=== PATIENT | female | born 1995 | race African-American/Black ===

== ENCOUNTER 2022-06-07 13:15 | Inpatient (IN) | payer OTHER ==
[2022-06-07 12:46] VITALS: BMI 28.1
[2022-06-07] MEDS ORDERED: NALOXONE HCL (KLOXXADO) 8 MG SPRAY NS PRN (15:27)
[2022-06-07] MEDS ORDERED: POLYETHYLENE GLYCOL (HEALTHYLAX) 3350 17 GM PACKET PO PRN (15:27)
[2022-06-07] MEDS ORDERED: ACETAMINOPHEN 325 MG TABLET (FP) PO PRN ×2 (15:27)
[2022-06-07] MEDS ORDERED: IBUPROFEN 400 MG TABLET (FP) PO PRN (15:27)
[2022-06-07] MEDS ORDERED: DICYCLOMINE HCL 10 MG CAPSULE PO PRN (15:27)
[2022-06-07] MEDS ORDERED: MAG HYDROX/AL HYDROX/SIMETH 30 ML UNIT-DOSE CUP PO PRN (15:27)
[2022-06-07] MEDS ORDERED: ONDANSETRON *ODT* 4 MG TABLET SL PRN (15:27)
[2022-06-07] MEDS ORDERED: MAGNESIUM HYDROX 2400MG/30ML ORAL SUSPENSION 30 ML CUP PO PRN (15:27)
[2022-06-07] MEDS ORDERED: BENZOCAINE/MENTHOL (CHLORASEPTIC ) LOZENGE MM PRN (15:27)
[2022-06-07] MEDS ORDERED: LOPERAMIDE HCL 2 MG CAPSULE PO PRN (15:27)
[2022-06-07] MEDS ORDERED: BISMUTH SUBSALICYLATE 524 MG/30 ML PO PRN (15:27)
[2022-06-07] MEDS ORDERED: ALBUTEROL SO4 HFA INHALER IH PRN (15:39)
[2022-06-07] MEDS: hydrOXYzine PAMOATE 25 MG CAPSULE (FP) PO PRN (18:32)
[2022-06-07] MEDS: THIAMINE HCL 100 MG TABLET (FP) PO SCH (22:42)
[2022-06-07] MEDS: MELATONIN 5 MG TABLETS PO SCH (22:42)
[2022-06-08] MEDS: PRENATAL VITAMINS W/ FOLIC ACID TABLET (FP) PO SCH (10:27)
[2022-06-08] MEDS: THIAMINE HCL 100 MG TABLET (FP) PO SCH ×2 (10:27→22:19)
[2022-06-08 11:42] LABS: HEMATOCRIT 40.9 % (32.4-45.2); HEMOGLOBIN 13.2 GM/dL (10.7-15.3); MCH 31.1 pg (25.7-33.7); MCHC 32.3 g/dl (32.0-36.0); MEAN CELL VOLUME 96.3 fl (80-96); MEAN PLT VOLUME 7.8 fl (7.5-11.1); PLATELET COUNT 212 10^3/uL (134-434); RBC 4.25 M/mm3 (3.60-5.2); RDW 14.7 % (11.6-15.6); WHITE BLOOD COUNT 4.8 K/mm3 (4.0-10.0)
[2022-06-08 12:00] LABS: CALCIUM 9.4 mg/dL (8.5-10.1)
[2022-06-08 12:01] LABS: ALBUMIN 3.8 g/dl (3.4-5.0); BLOOD UREA NITROGEN 9.4 mg/dL (7-18)
[2022-06-08 12:03] LABS: CREATININE 0.7 mg/dL (0.55-1.3)
[2022-06-08 12:05] LABS: BILIRUBIN,TOTAL 1.5 mg/dL (0.2-1); TOT PROT 6.9 g/dl (6.4-8.2)
[2022-06-08] MEDS: lamoTRIgine 25 MG TABLET PO SCH (12:27)
[2022-06-08 12:44] LABS: HIV INTERPRETATION NEGATIVE (NEGATIVE)
[2022-06-08] MEDS: hydrOXYzine PAMOATE 25 MG CAPSULE (FP) PO PRN ×2 (13:10→22:19)
[2022-06-08] MEDS: diazePAM 5 MG TABLET PO PRN ×2 (19:24→23:41)
[2022-06-08] MEDS: MELATONIN 5 MG TABLETS PO SCH (22:19)
[2022-06-09] MEDS ORDERED: cloNIDine HCL 0.1 MG TABLET PO PRN
[2022-06-09 09:49] VITALS: BP 133/96; PULSE 74; RESP 16; TEMP 98.2
[2022-06-09] MEDS: lamoTRIgine 25 MG TABLET PO SCH (10:09)
[2022-06-09] MEDS: PRENATAL VITAMINS W/ FOLIC ACID TABLET (FP) PO SCH (10:09)
[2022-06-09] MEDS: THIAMINE HCL 100 MG TABLET (FP) PO SCH (10:09)
== END 2022-06-09 11:55 | disposition home or self-care (01) | DRG 775 ==
LOC: YASAS 13:15 → Y6N 17:42
PROVIDERS: ADMIT Allergy & Immunology; ATTEND Surgery
PROC: HZ2ZZZZ Detoxification Services for Substance Abuse Treatment (ICD-10-PCS; principal; 2022-06-07)
DX: F10.230 Alcohol dependence with withdrawal, uncomplicated (principal); F12.20 Cannabis dependence, uncomplicated; F19.24 Other psychoactive substance dependence with psychoactive substance-induced mood disorder; F31.81 Bipolar II disorder; F41.9 Anxiety disorder, unspecified; J45.909 Unspecified asthma, uncomplicated; Z88.1 Allergy status to other antibiotic agents
CPT/HCPCS: 36415; 80053; 81025; 85027; 86780; 86803; 87389; C9803-CS; U0003; U0005

== ENCOUNTER 2022-08-27 20:48 | Inpatient (IN) | payer OTHER ==
[2022-08-27 16:37] VITALS: BMI 28.1
[2022-08-27] MEDS ORDERED: IBUPROFEN 600 MG TABLET (FP) PO PRN (22:57)
[2022-08-27] MEDS ORDERED: MAG HYDROX/AL HYDROX/SIMETH 30 ML UNIT-DOSE CUP PO PRN (22:57)
[2022-08-27] MEDS ORDERED: DICYCLOMINE HCL 10 MG CAPSULE PO PRN (22:57)
[2022-08-27] MEDS ORDERED: MAGNESIUM HYDROX 2400MG/30ML ORAL SUSPENSION 30 ML CUP PO PRN (22:57)
[2022-08-27] MEDS ORDERED: ACETAMINOPHEN 325 MG TABLET (FP) PO PRN (22:57)
[2022-08-27] MEDS ORDERED: P-EPHED 60MG/TRIPROLIDI 2.5MG TABLET PO PRN (22:57)
[2022-08-27] MEDS ORDERED: POLYETHYLENE GLYCOL (HEALTHYLAX) 3350 17 GM PACKET PO PRN (22:57)
[2022-08-27] MEDS ORDERED: LOPERAMIDE HCL 2 MG CAPSULE PO PRN (22:57)
[2022-08-27] MEDS ORDERED: IBUPROFEN 400 MG TABLET (FP) PO PRN (22:57)
[2022-08-27] MEDS ORDERED: MELATONIN 5 MG TABLETS PO PRN (22:57)
[2022-08-27] MEDS ORDERED: ONDANSETRON *ODT* 4 MG TABLET SL PRN (22:57)
[2022-08-27] MEDS ORDERED: METHOCARBAMOL 500 MG TABLET PO PRN (22:57)
[2022-08-27] MEDS ORDERED: guaiFENesin 600 MG TABLET.ER (FP) PO PRN (22:57)
[2022-08-27] MEDS ORDERED: hydrOXYzine PAMOATE 25 MG CAPSULE (FP) PO PRN (22:57)
[2022-08-27] MEDS ORDERED: BISMUTH SUBSALICYLATE 524 MG/30 ML PO PRN (22:57)
[2022-08-27] MEDS ORDERED: BENZONATATE 200 MG CAPSULE PO PRN (22:57)
[2022-08-27] MEDS ORDERED: BENZOCAINE/MENTHOL (CHLORASEPTIC ) LOZENGE MM PRN (22:57)
[2022-08-27] MEDS ORDERED: ALBUTEROL SO4 HFA INHALER IH PRN (23:21)
[2022-08-28] MEDS: PRENATAL VITAMINS W/ FOLIC ACID TABLET (FP) PO SCH (10:08)
[2022-08-28 10:14] LABS: HEMATOCRIT 33.7 % (32.4-45.2); HEMOGLOBIN 11.3 GM/dL (10.7-15.3); MCH 31.2 pg (25.7-33.7); MCHC 33.5 g/dl (32.0-36.0); MEAN CELL VOLUME 93.3 fl (80-96); MEAN PLT VOLUME 7.7 fl (7.5-11.1); PLATELET COUNT 217 10^3/uL (134-434); RBC 3.62 M/mm3 (3.60-5.2); RDW 13.9 % (11.6-15.6); WHITE BLOOD COUNT 4.7 K/mm3 (4.0-10.0)
[2022-08-28 12:39] LABS: CALCIUM 8.8 mg/dL (8.5-10.1)
[2022-08-28 12:40] LABS: ALBUMIN 3.6 g/dl (3.4-5.0); BLOOD UREA NITROGEN 12.6 mg/dL (7-18)
[2022-08-28 12:43] LABS: CREATININE 0.7 mg/dL (0.55-1.3)
[2022-08-28 12:44] LABS: BILIRUBIN,TOTAL 0.5 mg/dL (0.2-1)
[2022-08-28 12:48] LABS: TOT PROT 6.2 g/dl (6.4-8.2)
[2022-08-28] MEDS ORDERED: THIAMINE HCL 100 MG TABLET (FP) PO SCH (22:00)
[2022-08-28] MEDS: busPIRone HCL 10 MG TABLET (FP) PO SCH (22:29)
[2022-08-29] MEDS: busPIRone HCL 10 MG TABLET (FP) PO SCH (05:24)
[2022-08-29 09:19] VITALS: BP 157/108; PULSE 83; RESP 18; TEMP 97.5
[2022-08-29] MEDS: PRENATAL VITAMINS W/ FOLIC ACID TABLET (FP) PO SCH (09:47)
== END 2022-08-29 11:52 | disposition other institution (70) | DRG 897 ==
LOC: YASAS 20:48 → Y3N 23:42
PROVIDERS: ADMIT Allergy & Immunology; ATTEND Surgery
PROC: HZ2ZZZZ Detoxification Services for Substance Abuse Treatment (ICD-10-PCS; principal; 2022-08-27)
DX: F10.230 Alcohol dependence with withdrawal, uncomplicated (principal); F12.20 Cannabis dependence, uncomplicated; F17.210 Nicotine dependence, cigarettes, uncomplicated; F19.24 Other psychoactive substance dependence with psychoactive substance-induced mood disorder; F41.9 Anxiety disorder, unspecified; F32.A Depression, unspecified; Z86.59 Personal history of other mental and behavioral disorders; Z88.1 Allergy status to other antibiotic agents
CPT/HCPCS: 36415; 80053; 81025; 85027; 86780; 87811; C9803-CS; U0003; U0005